=== PATIENT | female | born 1970 | race Caucasian/White ===

== ENCOUNTER → 2017-08-25 | Outpatient (CLI) | payer OTHER ==
[2016-01-22 16:15] VITALS: BP 154/69
--- NOTE | 2017-08-25 14:51 | RAD ---
DATE: 08/25/2017 EXAM: DIGITAL SCREEN BILAT W/CAD HISTORY: Screening study. COMPARISON: 09/01/2016 This study was interpreted with the benefit of Computerized Aided Detection (CAD). The breast parenchyma shows scattered fibroglandular densities. Breast parenchyma level B. FINDINGS: MLO and CC digital mammograms of both breasts were obtained. Additional MLO digital mammograms of both breasts were obtained. Comparison study is dated 09/01/2016. The breast parenchyma is composed of scattered fibroglandular densities which can obscure a lesion on mammography (breast density code B). Benign-appearing calcifications are seen within both breasts. No spiculated mass is seen. No malignant appearing calcification or area of architectural distortion is noted. Since the previous examination there has been no significant interval change. IMPRESSION: BI-RADS Category 1, negative. There is no mammographic evidence of malignancy. Routine yearly screening mammography is recommended for follow-up. BI-RADS CATEGORY: 1 NEGATIVE RECOMMENDED FOLLOW-UP: 12M 12 MONTH FOLLOW-UP PQRS compliance statement: Patient information was entered into a reminder system with a target due date 08/25/2018 for the next mammogram. Mammography is a sensitive method for finding small breast cancers, but it does not detect them all and is not a substitute for careful clinical examination. A negative mammogram does not negate a clinically suspicious finding and should not result in delay in biopsying a clinically suspicious abnormality. "Our facility is accredited by the [employer] Mammography Program."
== END | disposition home or self-care (01) ==
LOC: MAMMO 07:36
PROVIDERS: ATTEND Family Medicine
DX: Z12.31 Encounter for screening mammogram for malignant neoplasm of breast (principal)
CPT/HCPCS: G0202; 77067

== ENCOUNTER → 2018-01-19 | Outpatient (CLI) | payer OTHER ==
[2016-01-22 16:15] VITALS: BP 154/69
[~2018-01-19] MED LIST: IOHEXOL 300 MG/ML 75 ML VIAL. IV ONE
--- NOTE | 2018-01-19 13:54 | RAD ---
CT of the chest without contrast, 01/19/2018: HISTORY: Shortness of breath, dyspnea Noncontrast scans were obtained as requested. There is mild calcific plaquing of the thoracic aorta without evidence of aneurysm. There are mild scattered coronary artery calcifications. The heart is within normal limits in size. There is abundant mediastinal fat. There is mild mediastinal adenopathy. The largest node measures 2 cm in short axis dimension and lies in the right subcarinal region along the medial aspect of the bronchus intermedius. The lateral aspect of the right hilum is somewhat lobulated as seen on axial image 45 of series #2, although a discrete mass cannot be clearly from the unopacified underlying hilar vasculature. There are mild patchy groundglass opacities in the right lower lobe as well as mild interlobular septal thickening. In the left base there are several small noncalcified pulmonary nodules. The largest of these measures 6 mm. There are least 3 other nearby smaller nodules. Several other tiny bilateral pulmonary nodules are seen such as a 2 mm nodule in the right upper lobe as seen on image 24 of series #2 and a 3 mm right upper lobe nodule on image 52 of series #2. Additional scattered linear opacities in the lungs probably represent scars or areas of atelectasis. There is no evidence of pleural fluid. There are moderate scattered spurs in the spine. A left shoulder prosthesis is in place there is evidence of prior gastric surgery. IMPRESSION: 1. Mild mediastinal and probable right hilar adenopathy. 2. Tiny bilateral noncalcified pulmonary nodules may be post inflammatory or neoplastic. 3. Mild patchy groundglass opacities in the right lower lobe with mild interlobular septal thickening. The findings may be inflammatory or could reflect central lymphatic obstruction. 4. Coronary artery calcifications. 5. Follow-up CT with contrast is suggested. Electronically signed by: Elpidio Chung MD (01/19/2018 1:51 PM) [facility]
== END | disposition home or self-care (01) ==
LOC: CT 07:47
PROVIDERS: ATTEND Nurse Practitioner Family
DX: I25.10 Atherosclerotic heart disease of native coronary artery without angina pectoris (principal); R91.8 Other nonspecific abnormal finding of lung field
CPT/HCPCS: 71250

== ENCOUNTER → 2018-03-29 | Outpatient (CLI) | payer OTHER ==
[2016-01-22 16:15] VITALS: BP 154/69
--- NOTE | 2018-03-29 16:54 | RAD ---
CT of the chest without contrast, 03/29/2018: HISTORY: Follow-up pulmonary nodules Noncontrast scans were obtained as requested and compared to a study from 01/19/2018. There are numerous bilateral pulmonary nodules. These are better defined on today's thinner slices. Calcifications are seen within several of these nodules on today's study. The nodules have shown no definite change in size. There is a cluster of nodules posteriorly in the left lower lobe with the largest of these measuring 5-6 mm. Other nodules include a 3.5 mm nodule in the anterior aspect of the right middle lobe as seen on image 159 of series #2 and a 5 mm subpleural nodule seen posterior medially in the right lower lobe on image 128 of series #2. No definite enlarging pulmonary nodules are seen. There are several scattered linear opacities in both lungs probably representing scars. There is mild persistent interlobular septal thickening in the right lower lobe. Several hazy groundglass opacities in the right lower lobe have resolved. There is no evidence of pleural fluid. An enlarged right subcarinal lymph node is unchanged as are several other smaller mediastinal nodes. Mild lobulation of the lateral aspect of the right hilum is unchanged. Nodes cannot be from unopacified hilar vessels on these noncontrast scans. Moderate scattered coronary artery calcifications are present. IMPRESSION: 1. Unchanged bilateral pulmonary nodules. Further CT surveillance is suggested. 2. Mild unchanged mediastinal adenopathy. 3. Moderate coronary artery calcifications. PQRS Compliance Statement: One or more of the following individualized dose reduction techniques were utilized for this examination: 1. Automated exposure control 2. Adjustment of the mA and/or kV according to patient size 3. Use of iterative reconstruction technique Electronically signed by: Elpidio Chung MD (03/29/2018 4:50 PM) [facility]
== END | disposition home or self-care (01) ==
LOC: CT 12:43
PROVIDERS: ATTEND Internal Medicine Pulmonary Disease
DX: R91.8 Other nonspecific abnormal finding of lung field (principal); I25.10 Atherosclerotic heart disease of native coronary artery without angina pectoris
CPT/HCPCS: 71250

== ENCOUNTER → 2018-05-04 | Outpatient (CLI) | payer OTHER ==
[2016-01-22 16:15] VITALS: BP 154/69
--- NOTE | 2018-05-04 10:38 | RAD ---
EXAM: Renal sonogram. HISTORY: Renal insufficiency. TECHNIQUE: Sonographic imaging of the kidneys and bladder was performed. COMPARISON: None. FINDINGS: The right kidney measures 11.4 cm [id number]. The left kidney measures 11.8 cm [id number]. There is a 1.0 cm left renal cyst. No solid renal lesion is seen. There is no hydronephrosis. The bladder is unremarkable. The exam is limited due to body habitus. IMPRESSION: 1. Small left renal cyst. 2. Otherwise, unremarkable renal sonogram. Electronically signed by: Madeleine Goldsmith MD (05/04/2018 10:35 AM) [facility]
== END | disposition home or self-care (01) ==
LOC: US 08:34
PROVIDERS: ATTEND Internal Medicine Nephrology
DX: N28.1 Cyst of kidney, acquired (principal); N18.3 Chronic kidney disease, stage 3 (moderate); I25.10 Atherosclerotic heart disease of native coronary artery without angina pectoris; D50.9 Iron deficiency anemia, unspecified
CPT/HCPCS: 76770

== ENCOUNTER 2018-11-01 07:06 | Observation (INO) | payer OTHER ==
[~2018-11-01] VITALS: Ht 162.6 cm; Wt 124.0 kg
[2018-11-01] MEDS ORDERED: IV NORMAL SALINE 500ML 500 ML IV ONE (07:30)
[2018-11-01 08:01] LABS: ALBUMIN 3.7 g/dL (3.4-5.0); ALBUMIN/GLOBULIN RATIO 1.3 (1.0-1.7); CALCIUM 9.2 mg/dL (8.5-10.1); CREATININE 2.4 mg/dL (0.6-1.0); GFR 21.5; TOTAL BILIRUBIN 0.4 mg/dL (0.2-1.0); TOTAL PROTEIN 6.5 g/dL (6.4-8.2)
[2018-11-01 08:03] LABS: POTASSIUM 6.2 mmol/L (3.5-5.1)
[2018-11-01 08:20] LABS: BASO # 0.1 x10^3/uL (0.0-0.2); BASO % 1 % (0-3); EOS # 0.2 x10^3/uL (0.0-0.7); EOS % 5 % (0-3); HEMATOCRIT 30.6 % (36.0-47.0); LYMPH # 0.9 x10^3/uL (1.0-4.8); LYMPH % 21 % (24-48); MEAN CORPUSCULAR HEMOGLOBIN 28 pg (25-35); MEAN CORPUSCULAR HGB CONC 33 g/dL (31-37); MEAN CORPUSCULAR VOLUME 85 fL (79-100); MONO # 0.3 x10^3/uL (0.0-1.1); MONO % 8 % (0-9); NEUT # 2.8 x10^3uL (1.8-7.7); NEUT % 65 % (31-73); PLATELET COUNT 161 x10^3/uL (140-400); RED BLOOD COUNT 3.61 x10^6/uL (3.50-5.40); RED CELL DISTRIBUTION WIDTH 13.3 % (11.5-14.5); WHITE BLOOD COUNT 4.3 x10^3/uL (4.0-11.0)
[2018-11-01] MEDS ORDERED: SODIUM BICARB PED 8.4% 10 MEQ/10 ML DISP.SYRIN. IV ONE (08:30)
--- NOTE | 2018-11-01 08:41 | PHYS DOC ---
Adult General Chief Complaint Chief Complaint: ABNORMAL LABS HPI HPI Patient is a 48-year-old female with history of chronic renal insufficiency who is currently undergoing workup. As a part of her workup she had routine blood work performed late last week and over the weekend they called her and told her her potassium was elevated and she needed to come to the emergency department. Patient states she has not had any symptoms other than some generalized weakness. She does state that she has had problems with some swelling in her ankles left greater than right but this is been going on for several weeks and she has had multiple physicians look at it. She denies any palpitations. She's not had any fever chills or sweats.[] Review of Systems Review of Systems Constitutional: Denies fever or chills [] Eyes: Denies change in visual acuity, redness, or eye pain [] HENT: Denies nasal congestion or sore throat [] Respiratory: Denies cough or shortness of breath [] Cardiovascular: No additional information not addressed in HPI [] GI: Denies abdominal pain, nausea, vomiting, bloody stools or diarrhea [] : Denies dysuria or hematuria [] Musculoskeletal: Lower extremity swelling[] Integument: Denies rash or skin lesions [] Neurologic: Denies headache, focal weakness or sensory changes [] Endocrine: Denies polyuria or polydipsia [] All other systems were reviewed and found to be within normal limits, except as documented in this note. Current Medications Current Medications Current Medications Medications (Trade) Dose Ordered Sig/Ru Start Time Stop Time Status Last Admin Dose Admin Calcium Gluconate 1,000 mg 1X ONCE 11/01/18 08:55 11/01/18 08:56 Dextrose 25 gm 1X ONCE 11/01/18 08:55 11/01/18 08:56 Insulin Human Regular (HumuLIN R VIAL) 10 unit 1X ONCE 11/01/18 08:55 11/01/18 08:56 Sodium Polystyrene Sulfonate (Kayexalate) 30 gm 1X ONCE 11/01/18 08:55 11/01/18 08:56 Sodium Bicarbonate (Sodium Bicarb Adult 8.4% Syr) 50 meq 1X ONCE 11/01/18 08:55 11/01/18 08:56 Sodium Bicarbonate (Sodium Bicarb Ped 8.4% Syr) 10 meq 1X ONCE 11/01/18 08:30 11/01/18 08:31 UNV Sodium Chloride 500 ml @ 0 mls/hr 1X ONCE 11/01/18 07:30 11/01/18 07:41 DC 11/01/18 08:10 500 MLS/HR Allergies Allergies Allergies Coded Allergies Type Severity Reaction Last Updated Verified No Known Drug Allergies 01/15/16 No Physical Exam Physical Exam Constitutional: Well developed, well nourished, no acute distress, non-toxic appearance. [] HENT: Normocephalic, atraumatic, bilateral external ears normal, oropharynx moist, no oral exudates, nose normal. [] Eyes: PERRLA, EOMI, conjunctiva normal, no discharge. [] Neck: Normal range of motion, no tenderness, supple, no stridor. [] Cardiovascular:Heart rate regular rhythm, no murmur [] Lungs & Thorax: Bilateral breath sounds clear to auscultation [] Abdomen: Bowel sounds normal, soft, no tenderness, no masses, no pulsatile masses. [] Skin: Warm, dry, no erythema, no rash. [] Back: No tenderness, no CVA tenderness. [] Extremities: Mild swelling left ankle greater than right. [] Neurologic: Alert and oriented X 3, normal motor function, normal sensory function, no focal deficits noted. [] Psychologic: Anxious. [] Current Patient Data Lab Results Laboratory Tests Test 11/01/18 07:36 White Blood Count 4.3 x10^3/uL (4.0-11.0) Red Blood Count 3.61 x10^6/uL (3.50-5.40) Hemoglobin 10.0 g/dL (12.0-15.5) L Hematocrit 30.6 % (36.0-47.0) L Mean Corpuscular Volume 85 fL (79-100) Mean Corpuscular Hemoglobin 28 pg (25-35) Mean Corpuscular Hemoglobin Concent 33 g/dL (31-37) Red Cell Distribution Width 13.3 % (11.5-14.5) Platelet Count 161 x10^3/uL (140-400) Neutrophils (%) (Auto) 65 % (31-73) Lymphocytes (%) (Auto) 21 % (24-48) L Monocytes (%) (Auto) 8 % (0-9) Eosinophils (%) (Auto) 5 % (0-3) H Basophils (%) (Auto) 1 % (0-3) Neutrophils # (Auto) 2.8 x10^3uL (1.8-7.7) Lymphocytes # (Auto) 0.9 x10^3/uL (1.0-4.8) L Monocytes # (Auto) 0.3 x10^3/uL (0.0-1.1) Eosinophils # (Auto) 0.2 x10^3/uL (0.0-0.7) Basophils # (Auto) 0.1 x10^3/uL (0.0-0.2) Sodium Level 138 mmol/L (136-145) Potassium Level 6.2 mmol/L (3.5-5.1) *H Chloride Level 106 mmol/L (98-107) Carbon Dioxide Level 24 mmol/L (21-32) Anion Gap 8 (6-14) Blood Urea Nitrogen 37 mg/dL (7-20) H Creatinine 2.4 mg/dL (0.6-1.0) H Estimated GFR (Cockcroft-Gault) 21.5 BUN/Creatinine Ratio 15 (6-20) Glucose Level 129 mg/dL (70-99) H Calcium Level 9.2 mg/dL (8.5-10.1) Total Bilirubin 0.4 mg/dL (0.2-1.0) Aspartate Amino Transferase (AST) 29 U/L (15-37) Alanine Aminotransferase (ALT) 25 U/L (14-59) Alkaline Phosphatase 39 U/L (46-116) L Total Protein 6.5 g/dL (6.4-8.2) Albumin 3.7 g/dL (3.4-5.0) Albumin/Globulin Ratio 1.3 (1.0-1.7) EKG EKG EKG: Normal sinus rhythm rate of [address]-T changes however there are some mild peaking of the T waves laterally[] Radiology/Procedures Radiology/Procedures [] Course & Med Decision Making Course & Med Decision Making Pertinent Labs and Imaging studies reviewed. (See chart for details) [ED course: Evaluation reveals a 48-year-old female with chronic renal insufficiency. Today her potassium was 6.2. She was given Kayexalate, sodium bicarbonate, calcium gluconate, 1 amp of D50 and insulin R 10 units IV. I spoke with Dr. Quezada who agreed to accept the patient for admission. Patient is agreeable to this plan. CRITICAL CARE: Time spent was 35 minutes. This includes medical management, evaluation, reevaluation, discussion with consultants and family. Critical Care does NOT include time spent on separately billed procedures. ] Dragon Disclaimer Dragon Disclaimer This electronic medical record was generated, in whole or in part, using a voice recognition dictation system. Departure Departure: Impression: Primary Impression: Hyperkalemia Additional Impression: Renal insufficiency Disposition: ADMITTED INPATIENT Admitting Physician: Elaina Garduno Condition: STABLE Referrals: DANIEL WATSON-Fadumo (PCP) Problem Qualifiers GERMÁN BLUM DO Nov 01, 2018 08:41
[2018-11-01] MEDS ORDERED: CALCIUM GLUCONATE 1,000 MG/10 ML VIAL IV ONE (08:55)
[2018-11-01] MEDS ORDERED: SODIUM BICARB ADULT 8.4% 50 MEQ/50 ML DISP.SYRIN. IV ONE (08:55)
[2018-11-01] MEDS ORDERED: SODIUM POLYSTYRENE SULFONATE 15 GM/60 ML ORAL.SUSP. PO ONE (08:55)
[2018-11-01] MEDS ORDERED: DEXTROSE 50% 25 GM / 50ML DISP.SYRIN. IV ONE (08:55)
[2018-11-01] MEDS ORDERED: INSULIN REGULAR 100 UNIT/ML 3ML VIAL. IV ONE (08:55)
[2018-11-01 10:35] LABS: BILIRUBIN,URINE NEG (NEG); CLARITY,URINE CLEAR; COLOR,URINE YELLOW; GLUCOSE,URINE NEG (NEG)
[2018-11-01 10:36] LABS: BACTERIA,URINE FEW /HPF (0-FEW); NITRITE,URINE NEG (NEG); RBC,URINE 0 /HPF (0-2); SQUAMOUS EPITHELIAL CELL,UR FEW /LPF; UROBILINOGEN,URINE 0.2 mg/dL (0.2 mg/dL); WBC,URINE OCC /HPF (0-4)
[2018-11-01 10:42] VITALS: BP 135/79
[2018-11-01] MEDS ORDERED: LABE200T4 PO (11:10)
[2018-11-01] MEDS ORDERED: AMLO10TA8 PO (11:10)
[2018-11-01] MEDS ORDERED: CRESTOR20 MG PO (11:45)
[2018-11-01] MEDS ORDERED: PENT400T4 PO (11:45)
[2018-11-01] MEDS ORDERED: FENO200C PO (11:45)
[2018-11-01] MEDS ORDERED: ASPI-630 PO (11:45)
[2018-11-01] MEDS ORDERED: BUPR200T PO (11:45)
[2018-11-01] MEDS ORDERED: LINA5TAB4 PO (11:45)
[2018-11-01] MEDS ORDERED: INSU100I13 SQ (11:45)
[2018-11-01] MEDS ORDERED: ACET325T9 PO (11:45)
[2018-11-01] MEDS ORDERED: CHOL100013 PO (11:45)
[2018-11-01] MEDS ORDERED: LISI40TA PO (11:45)
[2018-11-01] MEDS ORDERED: FERR325T14 PO (11:45)
[2018-11-01] MEDS ORDERED: BUSP15TA PO (11:45)
[2018-11-01] MEDS ORDERED: ONDANSETRON PF 4 MG/2 ML VIAL. IV PRN (13:45)
[2018-11-01 15:25] VITALS: BP 149/78
[2018-11-01] MEDS: PENTOXIFYLLINE ER 400 MG TABLET.ER. PO SCH (17:37)
[2018-11-01] MEDS ORDERED: ACETAMINOPHEN 325 MG TABLET PO SCH (18:00)
[2018-11-01 18:10] LABS: CALCIUM 8.7 mg/dL (8.5-10.1); CREATININE 2.4 mg/dL (0.6-1.0); GFR 21.5; POTASSIUM 5.3 mmol/L (3.5-5.1)
[2018-11-01] MEDS ORDERED: ACETAMINOPHEN 325 MG TABLET PO PRN (18:25)
[2018-11-01 19:30] VITALS: BP 129/77
[2018-11-01] MEDS ORDERED: INSULIN GLARGINE 300 UNITS/3 ML INSULN.PEN. SQ SCH (21:00)
[2018-11-01] MEDS ORDERED: ATORVASTATIN CALCIUM 20 MG TABLET PO SCH (21:00)
[2018-11-01] MEDS: busPIRone 10 MG TABLET. PO SCH (21:31)
[2018-11-01] MEDS: FERROUS SULFATE 325 MG TABLET. PO SCH (21:31)
[2018-11-01] MEDS: buPROPion SR 100 MG TABLET.SA. PO SCH (21:33)
[2018-11-01] MEDS: LABETALOL HCL 200 MG TABLET PO SCH (21:33)
[2018-11-01 23:00] VITALS: BP 132/81
[2018-11-02 05:40] VITALS: BP 134/67
[2018-11-02 06:14] LABS: BASO # 0.1 x10^3/uL (0.0-0.2); BASO % 2 % (0-3); EOS # 0.3 x10^3/uL (0.0-0.7); EOS % 6 % (0-3); HEMATOCRIT 30.2 % (36.0-47.0); LYMPH % 20 % (24-48); MEAN CORPUSCULAR HEMOGLOBIN 28 pg (25-35); MEAN CORPUSCULAR HGB CONC 33 g/dL (31-37); MEAN CORPUSCULAR VOLUME 84 fL (79-100); MONO # 0.4 x10^3/uL (0.0-1.1); MONO % 8 % (0-9); NEUT # 3.1 x10^3uL (1.8-7.7); NEUT % 65 % (31-73); PLATELET COUNT 170 x10^3/uL (140-400); RED BLOOD COUNT 3.58 x10^6/uL (3.50-5.40); RED CELL DISTRIBUTION WIDTH 13.2 % (11.5-14.5); WHITE BLOOD COUNT 4.9 x10^3/uL (4.0-11.0)
[2018-11-02 06:36] LABS: CALCIUM 9.2 mg/dL (8.5-10.1); CREATININE 2.4 mg/dL (0.6-1.0); GFR 21.5; POTASSIUM 5.5 mmol/L (3.5-5.1)
[2018-11-02] MEDS ORDERED: ASPIRIN 81 MG TAB.CHEW PO SCH (08:00)
[2018-11-02] MEDS: buPROPion SR 100 MG TABLET.SA. PO SCH (08:17)
[2018-11-02] MEDS: PENTOXIFYLLINE ER 400 MG TABLET.ER. PO SCH ×2 (08:18→17:57)
[2018-11-02] MEDS: FERROUS SULFATE 325 MG TABLET. PO SCH (08:18)
[2018-11-02] MEDS: busPIRone 10 MG TABLET. PO SCH (08:18)
[2018-11-02] MEDS: LABETALOL HCL 200 MG TABLET PO SCH (08:19)
[2018-11-02] MEDS ORDERED: amLODIPine BESYLATE 10 MG TABLET PO SCH (09:00)
[2018-11-02] MEDS ORDERED: FENOFIBRATE NANOCRYSTALLIZED 145 MG TABLET PO SCH (09:00)
[2018-11-02] MEDS ORDERED: CHOLECALCIFEROL (VITAMIN D3) 1,000 UNIT TABLET PO SCH (09:00)
[2018-11-02] MEDS ORDERED: LINAGLIPTIN 5 MG TABLET PO SCH (09:00)
[2018-11-02] MEDS ORDERED: LISINOPRIL 20 MG TABLET PO SCH (09:00)
[2018-11-02 10:38] VITALS: BP 119/70
[2018-11-02] MEDS ORDERED: SODIUM POLYSTYRENE SULFONATE 15 GM/60 ML ORAL.SUSP. PO ONE (12:30)
[2018-11-02 15:10] VITALS: BP 127/77
[2018-11-02 19:10] VITALS: BP 145/80
--- NOTE | 2018-11-02 21:41 | EKG ---
[address] [address] Test Date: 2018-11-01 Test Time: 07:44:12 Pat Name: JAYMIE RAMOS Department: Room: 119 A Gender: F Rabbit Breeder: CHOLO : 1970 Requested By: GERMÁN BLUM Order Number: [id number] Reading MD: Javier Berry MD Measurements Intervals [place] Rate: 67 P: 0 [place]: 196 QRS: 23 QRSD: 92 T: 39 QT: 390 QTc: 415 Interpretive Statements SINUS RHYTHM Electronically Signed On 11-06-2018 7:48:46 MORGUE TECHNICIAN by Javier Berry MD
== END 2018-11-02 20:08 | disposition home or self-care (01) ==
LOC: ER 07:06 → 1 SOUTH 10:18 → INTOOBSV 10:18
PROVIDERS: ADMIT Family Medicine; ATTEND Family Medicine
DX: I12.9 Hypertensive chronic kidney disease with stage 1 through stage 4 chronic kidney disease, or unspecified chronic kidney disease (principal); E87.5 Hyperkalemia; N18.9 Chronic kidney disease, unspecified; Z79.899 Other long term (current) drug therapy; E11.22 Type 2 diabetes mellitus with diabetic chronic kidney disease; F32.9 Major depressive disorder, single episode, unspecified; E66.01 Morbid (severe) obesity due to excess calories; E78.5 Hyperlipidemia, unspecified; Z90.49 Acquired absence of other specified parts of digestive tract
CPT/HCPCS: 36415; 80048; 80053; 81001; 82947; 84132; 85025; 85379; 93005; 96361; 96372; 96374; 96375; G0378; G0379; J0610; J1815; J7040; 99285-25; 99291-25

== ENCOUNTER → 2018-11-23 | Outpatient (CLI) | payer OTHER ==
[2018-11-02 19:10] VITALS: BP 145/80
[~2018-11-23] MED LIST changes: +ACET325T9 PO; +AMLO10TA8 PO; +ASPI-630 PO; +BUPR200T PO; +BUSP15TA PO; +CHOL100013 PO; +CRESTOR20 MG PO; +FENO200C PO; +FERR325T14 PO; +INSU100I13 SQ; -IOHEXOL 300 MG/ML 75 ML VIAL. IV ONE; +LABE200T4 PO; +LINA5TAB4 PO; +LISI40TA PO; +PENT400T4 PO
--- NOTE | 2018-11-23 11:51 | RAD ---
PQRS Compliance statement: One or more of the following individualized dose reduction techniques were utilized for this examination: 1. Automated exposure control. 2. Adjustment of the mA and/or kV according to patient size. 3. Use of iterative reconstruction technique. Indication:LOWER LEFT PLEURAL EFFUSION WITH COUGH TECHNIQUE: CT chest without IV contrast with multiplanar reformats. COMPARISON: 03/29/2018 FINDINGS: Heart is normal in size. No pericardial or pleural effusion. Coronary artery calcifications. Clear neck base. No enlarged axillary adenopathy. Mildly enlarged mediastinal lymph nodes are seen, the largest in the subcarina measuring 2.4 x 2.0 cm, previously 2.1 x 2.1 cm. Evaluation of hilar lymphadenopathy is limited due to lack of IV contrast. Multiple bilateral pulmonary nodules are seen. Index is as follows: -4 mm nodule in the right middle lobe (series 2 image 55) . Stable 3 mm nodule in the superior right major fissure (series 2 image 34) . Stable 1 cm nodule in the right lower lobe the wedged between bronchi (series 2 image 59). Multiple left lower lobe nodules are again seen, the largest measuring 5 mm (series 2 image 67) . No new nodules. The noncontrast appearance of the visualized liver, spleen, adrenals, pancreas, left kidney within normal limits.. No suspicious bony lesion. IMPRESSION: Stable bilateral pulmonary nodules as described above. Continued service recommended. Electronically signed by: Mal Garduno DO (11/23/2018 11:48 AM) [facility]
== END | disposition home or self-care (01) ==
LOC: CT 09:59
PROVIDERS: ATTEND Family Medicine
DX: R91.8 Other nonspecific abnormal finding of lung field (principal); I25.10 Atherosclerotic heart disease of native coronary artery without angina pectoris; R59.0 Localized enlarged lymph nodes
CPT/HCPCS: 71250

== ENCOUNTER → 2019-05-03 | Outpatient (CLI) | payer OTHER ==
[~2019-05-03] MED LIST changes: -PENT400T4 PO; +PENT400T7 PO
--- NOTE | 2019-05-03 16:20 | RAD ---
BILATERAL SCREENING MAMMOGRAM History: Routine screening. Comparison: 08/25/2017 screening mammographic exam. Technique: Routine bilateral digital mammogram views were obtained. Findings: Breast Tissue Density B : There are scattered areas of fibroglandular density. There are no dominant masses, suspicious microcalcifications, or architectural distortion. IMPRESSION: No mammographic evidence of malignancy. Recommend routine screening. BI-RADS category 1: Negative. The images were reviewed with computer aided detection. Patient information is entered into the reminder system with a target due date for the next screening mammogram. Mammography is the most sensitive method for finding small breast cancers, but it does not detect them all and is not a substitute for careful clinical examination. A negative mammogram does not negate a clinically suspicious finding and should not result in delay in biopsying a clinically suspicious abnormality. "Our facility is accredited by the [employer] Mammography Program." Electronically signed by: Ned Herman MD (05/03/2019 4:17 PM) [facility]
== END | disposition home or self-care (01) ==
LOC: MAMMO 08:22
PROVIDERS: ATTEND Family Medicine
DX: Z12.31 Encounter for screening mammogram for malignant neoplasm of breast (principal)
CPT/HCPCS: 77067

== ENCOUNTER 2019-08-13 08:18 | Inpatient (IN) | payer OTHER ==
[~2019-08-13] VITALS: Ht 162.6 cm; Wt 143.8 kg
--- NOTE | 2019-08-13 08:28 | PDOC2 ---
CARDIAC CONSULT DATE OF CONSULT Date Of Consult DATE: 08/13/19 TIME: 08:26 REASON FOR CONSULT Reason for Consult CHF REFERRING PHYSICIAN Referring Physician Dr. Brown SOURCE Source: Chart review, Patient HPI History of Present Illness This is a 49 yo female who was a direct admit for worsening LE edema and dyspnea upon exertion. Patient reports LE edema for the last 2 month. Over the last couple of weeks has be progressively worse. Began experiencing shortness of breath with minimal exertion. No SOA at rest. Denies any chest pain, palpitations, dizziness, diaphoresis, or nausea/vomiting. No recent illness/fevers. Saw PCP Monday and was started on Lasix 20mg daily. Has mildly improved LE edema. Labs were obtained and K reportedly at 6.1. Has a h/o CKD. Follows with Dr. Valencia. PAST MEDICAL HISTORY Cardiovascular: HTN, hyperipidemia Pulmonary: Other (CELIA intermittent use of CPAP) Heme/Onc: Anemia NOS Psych: Depression Musculoskeletal: Osteoarthritis Renal/: Chronic renal insuff Endocrine: Diabetes PAST SURGICAL HISTORY Past Surgical History: Appendectomy, Cholecystectomy, Other (gastric bypass. left shoulder replacement. ) FAMILY HISTORY Family History: Heart Disease, High Cholestrol, Hypertension SOCIAL HISTORY Smoke: No ALCOHOL: none Drugs: None Lives: with Family CURRENT MEDICATIONS Current Medications Active Scripts Active Reported Lantus Solostar (Insulin Glargine,Hum.rec.anlog) 100 Unit/1 Ml Insuln.pen 100 Unit SQ QHS Vitamin D (Cholecalciferol (Vitamin D3)) 1,000 Unit Capsule 1 Cap PO DAILY Tylenol (Acetaminophen) 325 Mg Tablet 650 Mg PO Q6HRS Pentoxifylline 400 Mg Tablet.er 400 Mg PO BID Aspirin 81 Mg Tab.chew 81 Mg PO DAILY Ferrous Sulfate 325 Mg Tablet 1 Tab PO BID Fenofibrate (Fenofibrate,Micronized) 200 Mg Capsule 1 Cap PO DAILY Buspirone Hcl 15 Mg Tablet 1 Tab PO BID Bupropion Hcl Sr (Bupropion Hcl) 200 Mg Tablet.er 1 Tab PO BID Tradjenta (Linagliptin) 5 Mg Tablet 1 Tab PO DAILY Crestor (Rosuvastatin Calcium) 20 Mg Tablet 1 Tab PO HS Labetalol Hcl 200 Mg Tablet 1 Tab PO BID Amlodipine Besylate 10 Mg Tablet 1 Tab PO DAILY ALLERGIES Allergies: Coded Allergies: No Known Drug Allergies (Unverified , 5/13/16) ROS Review of Systems 14 point ROS conducted with pertinent positives noted above in HPI. PHYSICAL EXAM General: Alert, Oriented X3, Cooperative, No acute distress HEENT: Atraumatic, Mucous membr. moist/pink Lungs: Clear to auscultation Heart: Regular rate, Normal S1, Normal S2, No murmurs Abdomen: Soft, No tenderness Extremities: Other (2-3+ bilateral LE pitting edema ) Skin: No breakdown Neuro: Normal speech, Sensation intact Psych/Mental Status: Mental status NL, Mood NL MUSCULOSKELETAL: Osteoarthritic changes both hands ECHOCARDIOGRAM Echocardiogram <Conclusion> The left ventricular systolic function is normal. The Ejection Fraction is 55-60%. There is normal LV segmental wall motion. Doppler and Color-flow revealed trace mitral regurgitation. There is no evidence of significant pericardial effusion. DATE: 05/10/19 1443 HEART CATH Heart Cath FINDINGS 1. Hemodynamics: Left ventricular end-diastolic pressure of 17 mmHg. No pullback gradient across the aortic valve. 2. Coronary angiography: a. The left main coronary artery arose from the left sinus of Valsalva, gave rise to the left anterior descending and left circumflex arteries and did not show any significant stenosis. b. The left anterior descending artery did not show any significant stenosis. c. The left circumflex artery did not show any significant stenosis. d. The right coronary artery was a large and dominant vessel arising from the right sinus of Valsalva that did not show any significant stenosis. Conclusion No significant coronary artery disease Recommendations Cardiac Risk Reduction Program DATE: 06/08/18 1124 ASSESSMENT/PLAN Assessment/Plan 1. Dyspnea upon exertion; multifactorial; recent echo with preserved LV systolic function as noted above. renal disease likely contributing. Cath last year without obstructive disease. 2. Hypertension; controlled 3. Hyperlipidemia; statin 4. Diabetes, II 5. CKD, hyperkalemia. Follows with Dr. Barrios 6. CELIA with CPAP 7. Morbid obesity Recommendations CXR CBC, BMP, NT Pro BNP Diuresis with monitoring of renal function Consider venous reflux study on an outpatient basis Supportive care FANTASMA CANO APRN Aug 13, 2019 08:28
[2019-08-13] MEDS ORDERED: PIOG30TA41 PO (08:48)
[2019-08-13] MEDS ORDERED: INSU100V37 SQ (08:48)
[2019-08-13] MEDS ORDERED: CYAN-9 PO (08:48)
[2019-08-13] MEDS ORDERED: LOSA1TAB22 PO (08:48)
[2019-08-13] MEDS ORDERED: CRESTOR20 MG PO (08:48)
[2019-08-13] MEDS ORDERED: PENT400T7 PO (08:48)
[2019-08-13] MEDS ORDERED: IRON1CAP14 PO (08:48)
[2019-08-13] MEDS ORDERED: AMLO10TA8 PO (08:48)
[2019-08-13 08:57] LABS: BASO % 1 % (0-3); EOS # 0.1 x10^3/uL (0.0-0.7); EOS % 3 % (0-3); HEMATOCRIT 28.7 % (36.0-47.0); HEMOGLOBIN 9.2 g/dL (12.0-15.5); LYMPH # 0.5 x10^3/uL (1.0-4.8); LYMPH % 13 % (24-48); MEAN CORPUSCULAR HEMOGLOBIN 31 pg (25-35); MEAN CORPUSCULAR HGB CONC 32 g/dL (31-37); MEAN CORPUSCULAR VOLUME 96 fL (79-100); MONO # 0.3 x10^3/uL (0.0-1.1); MONO % 7 % (0-9); NEUT % 76 % (31-73); PLATELET COUNT 113 x10^3/uL (140-400); RED CELL DISTRIBUTION WIDTH 14.6 % (11.5-14.5)
[2019-08-13] MEDS: busPIRone 15 MG TABLET. PO SCH ×2 (09:00→21:23)
[2019-08-13] MEDS: PENTOXIFYLLINE ER 400 MG TABLET.ER. PO SCH ×3 (09:00→21:24)
[2019-08-13] MEDS: amLODIPine BESYLATE 10 MG TABLET PO SCH (09:00)
[2019-08-13] MEDS ORDERED: NON FORMULARY ITEM (Losartan/Hydrochlorothiazide (Losartan-Hctz 100-25 Mg Tab) 1 TAB) PO SCH (09:00)
[2019-08-13] MEDS ORDERED: ATORVASTATIN CALCIUM 20 MG TABLET PO SCH ×2 (09:00→21:00)
[2019-08-13] MEDS: LABETALOL HCL 200 MG TABLET PO SCH ×2 (09:00→21:25)
[2019-08-13] MEDS: LOSARTAN 50 MG TABLET. PO SCH (09:00)
[2019-08-13] MEDS ORDERED: ASPIRIN 81 MG TAB.CHEW PO SCH ×2 (09:00→21:00)
[2019-08-13 09:17] LABS: ALBUMIN 3.4 g/dL (3.4-5.0); ALBUMIN/GLOBULIN RATIO 1.3 (1.0-1.7); CALCIUM 8.3 mg/dL (8.5-10.1); CREATININE 2.2 mg/dL (0.6-1.0); GFR 23.7; TOTAL BILIRUBIN 0.5 mg/dL (0.2-1.0)
[2019-08-13] MEDS: buPROPion SR 100 MG TABLET.SA. PO SCH ×2 (09:30→21:25)
[2019-08-13] MEDS ORDERED: DEXTROSE 50% 25 GM / 50ML DISP.SYRIN. IV PRN (11:00)
[2019-08-13 11:03] VITALS: BP 105/62
[2019-08-13] MEDS: FUROSEMIDE 20 MG/2 ML VIAL IVP SCH ×2 (11:19→14:33)
[2019-08-13] MEDS: ENOXAPARIN ** NOTE DOSE ** SYRINGE SQ SCH ×2 (11:19→21:26)
[2019-08-13] MEDS: INSULIN LISPRO 300 UNITS/3 ML VIAL. SQ SCH ×2 (11:58→16:59)
--- NOTE | 2019-08-13 13:55 | NUR ---
The patient, JAYMIE RAMOS, 49 y/o, F admitted by KRISTINA SALAZAR MD, was given written information regarding hospital policies, unit procedures and contact persons. Patient was admitted directly from home per physician orders. Patient arrived to the unit via wheelchair. Patient is alert and oriented x's 4 and in stable condition. Valuables were checked and documented. Physician orders were received and will continue to monitor patient.
[2019-08-13] MEDS: SODIUM BICARBONATE 650 MG TABLET PO SCH ×2 (14:00→21:00)
[2019-08-13 14:57] LABS: THYROID STIM HORMONE (TSH) 0.904 uIU/mL (0.358-3.740)
[2019-08-13 15:45] VITALS: BP 97/49
--- NOTE | 2019-08-13 17:13 | RAD ---
CHEST PA LATERAL History: Dyspnea Comparison: CT November 23, 2018 Findings: Patchy right mid lung and basilar opacity. No pleural effusion. Portal technique accentuates cardiac size. Left shoulder arthroplasty. No pneumothorax. Prominent epicardial fat within the mediastinum as seen on prior CT. Impression: 1. Patchy right mid and basilar opacity, may represent atelectasis or consolidation. Electronically signed by: Bruce Calderon DO (08/13/2019 5:10 PM) [id number]
[2019-08-13 19:34] VITALS: BP 147/71
[2019-08-13] MEDS ORDERED: INSULIN DEGLUDEC 100 UNIT SQ SCH (21:00)
[2019-08-13] MEDS ORDERED: INSULIN GLARGINE SYRINGE. SQ SCH (21:00)
[2019-08-13 22:40] VITALS: BP 102/59
[2019-08-14 05:28] VITALS: BP 117/58
[2019-08-14 06:21] LABS: CALCIUM 8.4 mg/dL (8.5-10.1); CREATININE 2.5 mg/dL (0.6-1.0); GFR 20.5; POTASSIUM 5.6 mmol/L (3.5-5.1)
[2019-08-14] MEDS: INSULIN LISPRO 300 UNITS/3 ML VIAL. SQ SCH ×2 (08:00→12:00)
--- NOTE | 2019-08-14 08:47 | PDOC ---
CARDIO Progress Notes Date & Time Date of Service DATE: 08/14/19 TIME: 08:43 Time of Evaluation 08:43 Subjective Notes Had increased urine production, but no significant improvement in LE edema Vitals Vitals Vital Signs Date Time Temp Pulse Resp B/P (MAP) Pulse Ox O2 Delivery O2 Flow Rate FiO2 08/14/19 05:28 98.2 74 22 117/58 (77) 95 Room Air Weight Weight [ ] Input and Output I.O. Intake and Output0 08/14/19 07:00 Intake Total 1400 ml Output Total 2725 ml Balance -1325 ml Intake Oral 1400 ml Output Urine Total 2725 ml # Voids 1 Laboratory Labs Laboratory Tests Test 08/13/19 08:45 08/13/19 09:05 08/13/19 11:26 08/13/19 11:27 White Blood Count 4.0 x10^3/uL (4.0-11.0) Red Blood Count 3.00 x10^6/uL (3.50-5.40) Hemoglobin 9.2 g/dL (12.0-15.5) Hematocrit 28.7 % (36.0-47.0) Mean Corpuscular Volume 96 fL (79-100) Mean Corpuscular Hemoglobin 31 pg (25-35) Mean Corpuscular Hemoglobin Concent 32 g/dL (31-37) Red Cell Distribution Width 14.6 % (11.5-14.5) Platelet Count 113 x10^3/uL (140-400) Neutrophils (%) (Auto) 76 % (31-73) Lymphocytes (%) (Auto) 13 % (24-48) Monocytes (%) (Auto) 7 % (0-9) Eosinophils (%) (Auto) 3 % (0-3) Basophils (%) (Auto) 1 % (0-3) Neutrophils # (Auto) 3.0 x10^3uL (1.8-7.7) Lymphocytes # (Auto) 0.5 x10^3/uL (1.0-4.8) Monocytes # (Auto) 0.3 x10^3/uL (0.0-1.1) Eosinophils # (Auto) 0.1 x10^3/uL (0.0-0.7) Basophils # (Auto) 0.0 x10^3/uL (0.0-0.2) D-Dimer (Tammie) 0.54 mg/L (0.00-0.50) Sodium Level 142 mmol/L (136-145) Potassium Level 6.0 mmol/L (3.5-5.1) Chloride Level 111 mmol/L (98-107) Carbon Dioxide Level 22 mmol/L (21-32) Anion Gap 9 (6-14) Blood Urea Nitrogen 39 mg/dL (7-20) Creatinine 2.2 mg/dL (0.6-1.0) Estimated GFR (Cockcroft-Gault) 23.7 BUN/Creatinine Ratio 18 (6-20) Glucose Level 61 mg/dL (70-99) Calcium Level 8.3 mg/dL (8.5-10.1) Total Bilirubin 0.5 mg/dL (0.2-1.0) Aspartate Amino Transf (AST/SGOT) 21 U/L (15-37) Alanine Aminotransferase (ALT/SGPT) 45 U/L (14-59) Alkaline Phosphatase 55 U/L (46-116) Troponin I Quantitative < 0.017 ng/mL (0-0.055) RA-Fyv-V-Type Natriuretic Peptide 775 pg/mL (0-124) Total Protein 6.0 g/dL (6.4-8.2) Albumin 3.4 g/dL (3.4-5.0) Albumin/Globulin Ratio 1.3 (1.0-1.7) Triglycerides Level 56 mg/dL (0-150) Cholesterol Level 94 mg/dL (0-200) LDL Cholesterol, Calculated 44 mg/dL (0-100) VLDL Cholesterol, Calculated 11 mg/dL (0-40) Non-HDL Cholesterol Calculated 55 mg/dL (0-129) HDL Cholesterol 39 mg/dL (40-60) Cholesterol/HDL Ratio 2.0 Thyroid Stimulating Hormone (TSH) 0.904 uIU/mL (0.358-3.740) Lactic Acid Level 0.7 mmol/L (0.4-2.0) Glucose (Fingerstick) 37 mg/dL (70-99) 40 mg/dL (70-99) Test 08/13/19 11:52 08/13/19 16:44 08/13/19 20:44 08/14/19 05:54 Glucose (Fingerstick) 79 mg/dL (70-99) 82 mg/dL (70-99) 115 mg/dL (70-99) Sodium Level 140 mmol/L (136-145) Potassium Level 5.6 mmol/L (3.5-5.1) Chloride Level 109 mmol/L (98-107) Carbon Dioxide Level 22 mmol/L (21-32) Anion Gap 9 (6-14) Blood Urea Nitrogen 40 mg/dL (7-20) Creatinine 2.5 mg/dL (0.6-1.0) Estimated GFR (Cockcroft-Gault) 20.5 Glucose Level 65 mg/dL (70-99) Calcium Level 8.4 mg/dL (8.5-10.1) Test 08/14/19 07:32 Glucose (Fingerstick) 66 mg/dL (70-99) Physical Exams HEENT: Neck Supple W Full Motion Chest: Symmetric Lungs: Clear to Auscultation Heart: RRR Abdomen: Soft N/T, Other (obese ) Extremities: Other (2+ bilateral LE pitting edema ) Neurology: alert, oriented, follow commands Assessment Assessment 1. Dyspnea upon exertion; multifactorial; Cath last year without obstructive disease. 2. Mild acute on chronic diastolic CHF; recent echo with preserved LV systolic function. renal disease likely contributing to edema 3. Hypertension; controlled 4. Hyperlipidemia; statin 5. Diabetes, II 6. FACUNDO on CKD, hyperkalemia. Cr ^ 2.5 with mild diuresis 7. Morbid obesity Recommendations Mild diuresis with monitoring of renal function Could consider RHC Consider outpatient venous reflux study Supportive care FANTASMA CANO APRN Aug 14, 2019 08:47
[2019-08-14] MEDS: PENTOXIFYLLINE ER 400 MG TABLET.ER. PO SCH ×2 (08:52→14:24)
[2019-08-14] MEDS: amLODIPine BESYLATE 10 MG TABLET PO SCH (08:52)
[2019-08-14] MEDS: LOSARTAN 50 MG TABLET. PO SCH (08:52)
[2019-08-14] MEDS: LABETALOL HCL 200 MG TABLET PO SCH (08:53)
[2019-08-14] MEDS: busPIRone 15 MG TABLET. PO SCH (08:53)
[2019-08-14] MEDS: FUROSEMIDE 20 MG/2 ML VIAL IVP SCH ×2 (08:53→14:25)
[2019-08-14] MEDS: ENOXAPARIN ** NOTE DOSE ** SYRINGE SQ SCH (08:54)
[2019-08-14] MEDS: SODIUM BICARBONATE 650 MG TABLET PO SCH ×2 (09:00→14:00)
[2019-08-14] MEDS: buPROPion SR 100 MG TABLET.SA. PO SCH (09:00)
[2019-08-14] MEDS ORDERED: PIOGLITAZONE 15 MG TABLET. PO SCH (09:00)
[2019-08-14] MEDS ORDERED: CYANOCOBALAMIN (VITAMIN B-12) 1,000 MCG TABLET. PO SCH (09:00)
[2019-08-14] MEDS ORDERED: CHOLECALCIFEROL (VITAMIN D3) 1,000 UNIT TABLET PO SCH (09:00)
[2019-08-14 11:13] VITALS: BP 116/68
[2019-08-14 14:57] VITALS: BP 137/74
[2019-08-14] MEDS ORDERED: LOSA25TA PO (15:03)
[2019-08-14] MEDS ORDERED: FURO40TA4 PO (15:03)
--- NOTE | 2019-08-14 16:41 | NUR ---
Discharge Note: JAYMIE RAMOS [address] [place] [address] Discharge instructions and discharge home medications reviewed with Patient and a copy given. All questions have been answered and understanding verbalized. Patient left the unit via wheelchair with all personal belongings. The following instructions and handouts were given: Discharge instructions Discontinued lines and drains: peripheral IV discontinued. Patient discharged to home/self care.
--- NOTE | 2019-08-15 01:57 | EKG ---
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
[2019-08-15] MEDS ORDERED: LOSARTAN 25 MG TABLET. PO SCH (09:00)
--- NOTE | 2019-08-16 10:26 | DS ---
DATE OF DISCHARGE: 08/14/2019 HOSPITAL COURSE: The patient is a 49-year-old female who was admitted for increased swelling in her legs as well as congestive heart failure. The patient made good progress. She was switched over from oral to IV Lasix. She diuresed very nicely in that regard and the patient made good progress during the rest of her hospitalization. She was seen by cardiology and the patient was discharged home for followup. The patient throughout the time was afebrile. Pulses were in the 70s. Oxygen saturation did vary. She did have +4 pitting edema in her legs. Blood pressure one time did drop down to 97/49, but other than that, the patient made good progress with diuresis. She felt 100% better. She was discharged for light duty at home for a few more days before trying to return. She did have chronic anemia of 9.2 and 28, platelets were low at 113, and the patient made excellent progress overall. IMPRESSION: Acute on top of chronic diastolic heart failure, peripheral edema, thrombocytopenia, anemia of chronic disease, morbid obesity. PLAN: The patient will be discharged home, followed up as an outpatient and make further evaluation on her other medical issues as indicated. KRISTINA SALAZAR MD DR: NAINA/khalida JOB#: [id number] / [id number]
== END 2019-08-14 16:47 | disposition home or self-care (01) | DRG 291 ==
LOC: 1 SOUTH 08:18
PROVIDERS: ADMIT Family Medicine; ATTEND Family Medicine
DX: I13.0 Hypertensive heart and chronic kidney disease with heart failure and stage 1 through stage 4 chronic kidney disease, or unspecified chronic kidney disease (principal); I50.33 Acute on chronic diastolic (congestive) heart failure; N17.9 Acute kidney failure, unspecified; Z68.43 Body mass index [BMI] 50.0-59.9, adult; E11.22 Type 2 diabetes mellitus with diabetic chronic kidney disease; E66.01 Morbid (severe) obesity due to excess calories; E78.5 Hyperlipidemia, unspecified; E87.5 Hyperkalemia; G47.33 Obstructive sleep apnea (adult) (pediatric); F32.9 Major depressive disorder, single episode, unspecified; N18.9 Chronic kidney disease, unspecified; Z82.49 Family history of ischemic heart disease and other diseases of the circulatory system; Z96.612 Presence of left artificial shoulder joint; Z98.84 Bariatric surgery status; M19.90 Unspecified osteoarthritis, unspecified site
CPT/HCPCS: 36415; 71046; 80048; 80053; 80061; 82947; 83605; 83880; 84443; 84484; 85025; 85379; 93005; J1650; J1815

== ENCOUNTER → 2020-02-14 | Outpatient (CLI) | payer OTHER ==
[~2020-02-14] MED LIST changes: +CYAN-9 PO; +FURO40TA4 PO; +INSU100V37 SQ; +IRON1CAP14 PO; +LOSA1TAB22 PO; +LOSA25TA PO; +PIOG30TA41 PO
[2020-02-14 19:23] LABS: BASO # 0.1 x10^3/uL (0.0-0.2); BASO % 1 % (0-3); EOS # 0.3 x10^3/uL (0.0-0.7); EOS % 6 % (0-3); HEMATOCRIT 31.1 % (36.0-47.0); HEMOGLOBIN 10.1 g/dL (12.0-15.5); LYMPH # 0.9 x10^3/uL (1.0-4.8); LYMPH % 19 % (24-48); MEAN CORPUSCULAR HEMOGLOBIN 29 pg (25-35); MEAN CORPUSCULAR HGB CONC 32 g/dL (31-37); MEAN CORPUSCULAR VOLUME 91 fL (79-100); MONO # 0.4 x10^3/uL (0.0-1.1); MONO % 8 % (0-9); NEUT # 3.2 x10^3uL (1.8-7.7); NEUT % 67 % (31-73); PLATELET COUNT 133 x10^3/uL (140-400); RED BLOOD COUNT 3.43 x10^6/uL (3.50-5.40); RED CELL DISTRIBUTION WIDTH 13.5 % (11.5-14.5); WHITE BLOOD COUNT 4.8 x10^3/uL (4.0-11.0)
[2020-02-14 19:33] LABS: ALBUMIN 3.7 g/dL (3.4-5.0); CALCIUM 9.1 mg/dL (8.5-10.1); CREATININE 2.5 mg/dL (0.6-1.0); GFR 20.4; PHOSPHORUS 4.4 mg/dL (2.6-4.7); POTASSIUM 5.3 mmol/L (3.5-5.1)
[2020-02-15 15:08] LABS: CREATININE PTH 2.43 mg/dL (0.57-1.00); PTH INTACT 35 pg/mL (15-65)
[2020-02-16 00:06] LABS: HEMOGLOBIN A1C 5.8 % (4.8-5.6)
== END ==
LOC: LAB 17:50
PROVIDERS: ATTEND Family Medicine
DX: E11.22 Type 2 diabetes mellitus with diabetic chronic kidney disease (principal); I12.9 Hypertensive chronic kidney disease with stage 1 through stage 4 chronic kidney disease, or unspecified chronic kidney disease; N18.4 Chronic kidney disease, stage 4 (severe); E87.5 Hyperkalemia
CPT/HCPCS: 36415; 80069; 83036; 83970; 84100; 85025

== ENCOUNTER → 2020-09-29 | Outpatient (CLI) | payer OTHER ==
[~2020-09-29] MED LIST changes: +AMLO-187 PO; -AMLO10TA8 PO; -BUPR200T PO; +BUPR200T3 PO
--- NOTE | 2020-09-29 16:51 | CARD ---
MR#: [id number] Date of Study: 09/29/2020 Ordering Physician: DANIEL HAMILTON, Referring Physician: DANIEL HAMILTON Tech: Fela Butts RDCS APPROVED REPORT EXAM: Two-dimensional and M-mode echocardiogram with Doppler and color Doppler. Other Information Quality : Technically Limited Technically limited study due to morbid obesity; patient refused contrast agent. INDICATION Dyspnea on Exertion 2D DIMENSIONS RVDd3.0 (2.9-3.5cm)Left Atrium(2D)4.7 (1.6-4.0cm) IVSd1.4 (0.7-1.1cm)Aortic Root(2D)3.3 (2.0-3.7cm) LVDd5.5 (3.9-5.9cm)LVOT Diameter2.6 (1.8-2.4cm) PWd1.3 (0.7-1.1cm)LVDs3.7 (2.5-4.0cm) FS (%) 32.8 %SV88.9 ml LVEF(%)60.7 (>50%) Aortic Valve AoV Peak Juan Antonio.134.5cm/sAoV VTI29.2cm AO Peak GR.7.2mmHgLVOT Peak Juan Antonio.140.1cm/s LVOT VTI 33.38cmAO Mean GR.4mmHg MARCE (VMAX)5.63cm2 Mitral Valve MV E Ggcufrdf623.5cm/sMV DECEL [id number] MV A Zkouhkmv888.5cm/sE/A Ratio1.3 Pulmonary Vein S1 Qcieeici43.1cm/sD2 Ejkhnpff48.8cm/s LEFT VENTRICLE The left ventricle is normal size. There is mild concentric left ventricular hypertrophy. The left ve ntricular systolic function is normal and the ejection fraction is within normal range. The Ejection Fraction is 55-60%. There is normal LV segmental wall motion. RIGHT VENTRICLE The right ventricle is normal size. The right ventricular systolic function is normal. ATRIA The left atrium is mildly dilated. The right atrium size is normal. The interatrial septum is intact with no evidence for an atrial septal defect or patent foramen ovale as noted on 2-D or Doppler imagi ng. AORTIC VALVE The aortic valve is not well visualized but is functioning normally by Doppler interrogation. Doppler and Color Flow revealed no significant aortic regurgitation. There is no significant aortic valvular stenosis. MITRAL VALVE The mitral valve is calcified but opens well. There is no evidence of mitral valve prolapse. There is no mitral valve stenosis. Doppler and Color Flow revealed trace mitral valve regurgitation. TRICUSPID VALVE The tricuspid valve is normal in structure and function. Doppler and Color Flow revealed no tricuspid valve regurgitation noted. There is no tricuspid valve prolapse or vegetation. PULMONIC VALVE The pulmonic valve is not well visualized. Doppler and Color Flow revealed no pulmonic valvular regur gitation. There is no pulmonic valvular stenosis. GREAT VESSELS The aortic root is normal in size. The ascending aorta is mildly dilated at 3.5 cm. The IVC is normal in size and collapses >50% with inspiration. PERICARDIAL EFFUSION There is no evidence of significant pericardial effusion. Critical Notification Critical Value: No <Conclusion> The left ventricle is normal size. The left ventricular systolic function is normal and the ejection fraction is within normal range. The Ejection Fraction is 55-60%. There is mild concentric left ventricular hypertrophy. Doppler and Color Flow revealed no significant aortic regurgitation. There is no significant aortic valvular stenosis. Doppler and Color Flow revealed trace mitral valve regurgitation. Doppler and Color Flow revealed no tricuspid valve regurgitation noted. The ascending aorta is mildly dilated at 3.5 cm. Signed by : Tano Luque MD Electronically Approved : 09/29/2020 16:50:54
== END ==
LOC: ECHO 13:40
PROVIDERS: ATTEND Internal Medicine Cardiovascular Disease
DX: I51.7 Cardiomegaly (principal); R06.09 Other forms of dyspnea
CPT/HCPCS: 93306

== ENCOUNTER → 2021-04-16 | Outpatient (CLI) | payer OTHER ==
[~2021-04-16] MED LIST changes: -LISI40TA PO; +LISI40TA6 PO
--- NOTE | 2021-04-19 14:06 | RAD ---
INDICATION: 51 years of age asymptomatic female patient presents for screening mammography. TECHNIQUE: Bilateral full field craniocaudal and mediolateral oblique images were obtained using dig ital technique and also analyzed with computer-aided detection software. COMPARISON: Prior mammographic imaging dating back to 05/03/2019, 08/29/2019, 08/25/2017. BREAST COMPOSITION: Category B: There are scattered fibroglandular densities. FINDINGS: Benign calcifications are present. The parenchymal pattern appears stable. No suspicious masses, microcalcifications or architectural distortion is present to suggest malignanc y in either breast. The visualized axillae are unremarkable. IMPRESSION: No mammographic evidence of malignancy. RECOMMENDATION: Annual screening mammography is recommended, unless clinically indicated sooner based on symptoms or change in physical exam. BIRADS 2: BENIGN This study was interpreted with the benefit of Computerized Aided Detection (CAD). Patient information is entered into the reminder system with a target due date for the next screening mammogram. Mammography is the most sensitive method for finding small breast cancers, but it does not detect the m all and is not a substitute for careful clinical examination. A negative mammogram does not negate a clinically suspicious finding and should not result in delay in biopsying a clinically suspicious a bnormality. "Our facility is accredited by the [employer] Mammography Program." Electronically signed by: Nando Ryder MD (04/19/2021 2:04 PM) [facility]
== END ==
LOC: MAMMO 13:20
PROVIDERS: ATTEND Family Medicine
DX: Z12.31 Encounter for screening mammogram for malignant neoplasm of breast (principal)
CPT/HCPCS: 77067